=== PATIENT | male | born 1955 | race Caucasian/White ===

== ENCOUNTER 2018-01-04 21:20 | Emergency (ER) | END 2018-01-05 04:38 | disposition home or self-care (01) ==

== ENCOUNTER 2018-01-19 16:45 | Emergency (ER) | END 2018-01-19 17:34 | disposition home or self-care (01) ==

== ENCOUNTER 2018-02-03 19:02 | Emergency (ER) | END 2018-02-03 19:59 | disposition home or self-care (01) ==

== ENCOUNTER 2018-02-18 20:47 | Emergency (ER) | END 2018-02-19 07:09 | disposition home or self-care (01) ==

== ENCOUNTER 2018-02-26 17:32 | Emergency (ER) | END 2018-02-26 23:28 | disposition home or self-care (01) ==

== ENCOUNTER 2019-02-24 06:16 | Day surgery (SDC) | payer BC ==
[~2019-02-24] VITALS: Ht 165.1 cm; Wt 57.2 kg
[~2019-02-24 06:16] MED LIST: ALBU18HF INHALATION; GUAI400T68 PO; PRED20TA PO
[2019-02-24 07:04] VITALS: Ht 165.1 cm; Wt 57.2 kg
[2019-02-24 07:32] VITALS: BP 161/83; PULSE 72; RESP 16
[2019-02-24] MEDS ORDERED: LIDOCAINE 100 MG SYRINGE ONE (07:55)
[2019-02-24] MEDS ORDERED: PROPOFOL 40 ML ONE (07:55)
--- NOTE | 2019-02-24 08:05 | PREAC ---
Date/Time of Note Date/Time of Note DATE: 02/24/19 TIME: 08:03 Anesthesia Eval and Record Evaluation Time Pre-Procedure Interview DATE: 02/24/19 TIME: 08:03 Age 63 Sex male NPO: 8 hrs Preoperative diagnosis other fecal abnormalities Planned procedure EGD / colonoscopy Past Medical History Past Medical History: Includes Pulm: Asthma Surgery & Anesthesia Issues No known issue Meds Anticoagulation: No Beta Yeison within 24 hr: No Reason Beta Yeison not given: Pt. not on B-Yeison Active Scripts Prednisone* (Prednisone*) 20 Mg Tab, 40 MG PO DAILY for 3 Days, TAB Prov:YAEL CHRISTIANSON DO 02/26/18 Albuterol Sulfate* (Ventolin HFA*) 18 Gm Hfa.aer.ad, 2 PUFF INHALATION Q4H, #1 INHALER Prov:YAEL CHRISTIANSON DO 02/26/18 Discontinued Scripts Guaifenesin (Guaifenesin) 400 Mg Tablet, 400 MG PO BID for 7 Days, TAB Prov:YAEL CHRISTIANSON DO 02/26/18 Meds reviewed: Yes Allergies Coded Allergies: aspirin (Unverified Adverse Reaction, Unknown, WEAKNESS, 02/24/19) Allergies Reviewed: Yes Labs/Studies Labs Reviewed: Other (NA) test: N/A Pre-procedure Exam Last vitals Vital Signs Date Temp Pulse Resp B/P (MAP) Pulse Ox O2 O2 Flow FiO2 Time Delivery Rate 02/24/19 97.9 72 16 161/83 99 Room Air 07:32 (109) Airway: Adequate mouth opening Mallampati: Mallampati II Teeth: Normal Lung: Normal Heart: Normal ASA Physical Status ASA physical status: 2 Emergency: None Planned Anesthetic General/MAC: MAC Pre-operative Attestations Prior to commencing anesthesia and surgery, the patient was re-evaluated, there was verification of: *The patient's identity *The results of appropriate recent lab work and preoperative vital signs *The above evaluation not changing prior to induction *Anesthetic plan, risk benefits, alternative and complications discussed with patient/family; questions answered; patient/family understands, accepts and wishes to proceed. KIM KING February 24, 2019 08:05
--- NOTE | 2019-02-24 08:35 | PAC ---
Date/Time of Note Date/Time of Note DATE: 02/24/19 TIME: 08:35 Post-Anesthesia Notes Post-Anesthesia Note Last documented vital signs Vital Signs Date Temp Pulse Resp B/P (MAP) Pulse Ox O2 O2 Flow FiO2 Time Delivery Rate 02/24/19 97.9 72 16 161/83 99 Room Air 07:32 (109) Activity: WNL Respiratory function: WNL Cardiovascular function: WNL Mental status: Baseline Pain reasonably controlled: Yes Hydration appropriate: Yes Nausea/Vomiting absent: Yes KIM KING February 24, 2019 08:35
[2019-02-24] MEDS ORDERED: FENTAnyl 50 MCG/ML VIAL IV PRN ×4 (09:00→09:30)
[2019-02-24] MEDS ORDERED: ALBUTEROL 0.083% (NEB) 2.5 MG/3 ML AMP HHN PRN (09:00)
[2019-02-24] MEDS ORDERED: HYDROmorphONE 1 MG/5 ML IV SYRINGE IV PRN ×4 (09:00→09:30)
[2019-02-24] MEDS ORDERED: HYDROmorphONE 1 MG/ML SYG ONE (09:22)
[2019-02-24] MEDS ORDERED: FENTAnyl 50 MCG/ML VIAL ONE (09:22)
[2019-02-24] MEDS ORDERED: METOCLOPRAMIDE 10 MG INJ IV PRN (09:30)
[2019-02-24] MEDS ORDERED: ONDANSETRON 4 MG INJ IV PRN (09:30)
[2019-02-24] MEDS ORDERED: ONDANSETRON 4 MG INJ ONE (09:37)
== END 2019-02-24 15:22 | disposition home or self-care (01) ==
LOC: GIL 06:16
PROVIDERS: ATTEND Internal Medicine Gastroenterology
DX: K57.30 Diverticulosis of large intestine without perforation or abscess without bleeding (principal); K44.9 Diaphragmatic hernia without obstruction or gangrene
CPT/HCPCS: 43239; 45378; 88305; J1170; J2001; J2405; J3010; Z7610; 88312

== ENCOUNTER 2019-02-25 19:14 | Emergency (ER) | payer BC ==
[~2019-02-25] VITALS: Ht 165.1 cm; Wt 55.8 kg
[~2019-02-25 19:14] MED LIST changes: -GUAI400T68 PO
[2019-02-25 19:33] VITALS: Ht 165.1 cm; Wt 55.8 kg
--- NOTE | 2019-02-26 04:22 | ERD ---
ER Documentation Chief Complaint Chief Complaint C/O BLOATING X5 MONTHS, STATES PARASITES, STATES "I AM DYING" HPI Is a 62-year-old male brought in by himself with complaints of bloating and parasites all over his body. Patient had a recent colonoscopy. Upon arriving patient becomes very belligerent saying that no one believes him that his parasites. I was able to calm patient down. Telemetry psychiatry notified ROS All systems reviewed and are negative except as per history of present illness. Medications Home Meds Active Scripts Prednisone* (Prednisone*) 20 Mg Tab, 40 MG PO DAILY for 3 Days, TAB Prov:YAEL CHRISTIANSON DO 02/26/18 Albuterol Sulfate* (Ventolin HFA*) 18 Gm Hfa.aer.ad, 2 PUFF INHALATION Q4H, #1 INHALER Prov:YAEL CHRISTIANSON DO 02/26/18 Discontinued Scripts Guaifenesin (Guaifenesin) 400 Mg Tablet, 400 MG PO BID for 7 Days, TAB Prov:YAEL CHRISTIANSON DO 02/26/18 Allergies Allergies: Coded Allergies: aspirin (Unverified Adverse Reaction, Unknown, WEAKNESS, 02/24/19) PMhx/Soc History of Surgery: Yes (LT. INGUINAL HERNIA REPAIR) Anesthesia Reaction: No Hx Neurological Disorder: No Hx Respiratory Disorders: Yes (ASTHMA) Hx Cardiac Disorders: No Hx Psychiatric Problems: No Hx Miscellaneous Medical Probl: No Hx Alcohol Use: Yes Hx Substance Use: No Hx Tobacco Use: No Smoking Status: Never smoker Physical Exam Vitals Vital Signs Date Temp Pulse Resp B/P (MAP) Pulse Ox O2 O2 Flow FiO2 Time Delivery Rate 02/26/19 81 20 157/91 98 Room Air 04:00 (113) 02/26/19 86 18 171/101 97 Room Air 02:00 (124) 02/25/19 99.4 90 19 181/101 99 19:33 (127) Physical Exam Const: No acute distress Head: Atraumatic Eyes: Normal Conjunctiva ENT: Normal External Ears, Nose and Mouth. Neck: Full range of motion. No meningismus. Resp: Clear to auscultation bilaterally Cardio: Regular rate and rhythm, no murmurs Abd: Soft, non tender, non distended. Normal bowel sounds Skin: No petechiae or rashes Back: No midline or flank tenderness Ext: No cyanosis, or edema Neur: Awake and alert Psych: Normal Mood and Affect Result Diagram: 02/26/19 0208 02/26/19 0208 Results 24 hrs Laboratory Tests Test 02/26/19 02:08 02/26/19 02:30 White Blood Count 11.4 10^3/ul Red Blood Count 4.18 10^6/ul Hemoglobin 12.1 g/dl Hematocrit 37.4 % Mean Corpuscular Volume 89.5 fl Mean Corpuscular Hemoglobin 28.9 pg Mean Corpuscular Hemoglobin Concent 32.4 g/dl Red Cell Distribution Width 12.9 % Platelet Count 355 10^3/UL Mean Platelet Volume 9.4 fl Immature Granulocytes % 0.400 % Neutrophils % 84.4 % Lymphocytes % 8.1 % Monocytes % 6.9 % Eosinophils % 0.1 % Basophils % 0.1 % Nucleated Red Blood Cells % 0.0 /100WBC Immature Granulocytes # 0.040 10^3/ul Neutrophils # 9.6 10^3/ul Lymphocytes # 0.9 10^3/ul Monocytes # 0.8 10^3/ul Eosinophils # 0.0 10^3/ul Basophils # 0.0 10^3/ul Nucleated Red Blood Cells # 0.0 10^3/ul Sodium Level 138 mmol/L Potassium Level 3.6 mmol/L Chloride Level 100 mmol/L Carbon Dioxide Level 28 mmol/L Anion Gap 10 Blood Urea Nitrogen 21 mg/dl Creatinine 0.69 mg/dl Est Glomerular Filtrat Rate mL/min > 60 mL/min Glucose Level 98 mg/dl Calcium Level 9.2 mg/dl Total Bilirubin 0.7 mg/dl Direct Bilirubin 0.00 mg/dl Indirect Bilirubin 0.7 mg/dl Aspartate Amino Transf (AST/SGOT) 24 IU/L Alanine Aminotransferase (ALT/SGPT) 9 IU/L Alkaline Phosphatase 102 IU/L Total Protein 8.2 g/dl Albumin 4.0 g/dl Globulin 4.20 g/dl Albumin/Globulin Ratio 0.95 Salicylates Level < 1.0 mg/dl Acetaminophen Level < 10.0 ug/ml Ethyl Alcohol Level < 10.0 mg/dl Urine Color YELLOW Urine Clarity CLEAR Urine pH 6.0 Urine Specific [place] 1.021 Urine Ketones 2+ mg/dL Urine Nitrite NEGATIVE mg/dL Urine Bilirubin NEGATIVE mg/dL Urine Urobilinogen 1+ mg/dL Urine Leukocyte Esterase NEGATIVE La/ul Urine Microscopic RBC 70 /HPF Urine Microscopic WBC 1 /HPF Urine Mucus FEW /HPF Urine Hemoglobin 2+ mg/dL Urine Glucose NEGATIVE mg/dL Urine Total Protein NEGATIVE mg/dl Urine Opiates Screen Negative Urine Barbiturates Negative Urine Amphetamines Screen Negative Urine Benzodiazepines Screen Negative Urine Cocaine Screen Negative Urine Cannabinoids Positive Procedures/MDM Patient's behavioral symptoms have stabilized while in the department. Patient is medically cleared and appropriate for psychiatric evaluation and work up. No e/o neurologic, toxic, infectious, or metabolic cause. Found to be stable f or trial of outpatient management. Telemetry psych recommend risperidone 1 mg bedtime which I will j prescribe to the patient Departure Diagnosis: Primary Impression: Multiple complaints Condition: Stable JOEL ROD February 26, 2019 04:22
[2019-02-26] MEDS ORDERED: RISP1TAB3 PO (04:23)
[2019-02-26 04:31] VITALS: BP 133/75; PULSE 73; RESP 16
--- NOTE | 2019-02-26 05:48 | PSY ---
Date/Time of Note Date/Time of Note DATE: 02/26/19 TIME: 05:47 Psychiatric Subjective Eval Consent Pt consented to telemedicine: Yes Subjective Evaluation Patient location: emergency Chief Complaint: C/O BLOATING X5 MONTHS, STATES PARASITES, STATES "I AM DYING" Medical history Problems Medical Problems: (1) Asthma Status: Acute (2) Asthma Status: Acute (3) Asthma exacerbation Status: Acute (4) Asthma exacerbation Status: Acute (5) Asthma exacerbation Status: Acute (6) Factitial dermatitis Status: Acute (7) Fear of parasites Status: Acute (8) Multiple complaints Status: Acute (9) Peripheral edema Status: Acute (10) Rash and other nonspecific skin eruption Status: Acute (11) Skin lesions, generalized Status: Acute (12) Skin lesions, generalized Status: Acute Allergies: Coded Allergies: aspirin (Unverified Adverse Reaction, Unknown, WEAKNESS, 02/24/19) Psychiatric Objective Eval Mental Status Examination: Laboratory Results Laboratory Tests Test 02/26/19 02:08 02/26/19 02:30 White Blood Count 11.4 10^3/ul Red Blood Count 4.18 10^6/ul Hemoglobin 12.1 g/dl Hematocrit 37.4 % Mean Corpuscular Volume 89.5 fl Mean Corpuscular Hemoglobin 28.9 pg Mean Corpuscular Hemoglobin Concent 32.4 g/dl Red Cell Distribution Width 12.9 % Platelet Count 355 10^3/UL Mean Platelet Volume 9.4 fl Immature Granulocytes % 0.400 % Neutrophils % 84.4 % Lymphocytes % 8.1 % Monocytes % 6.9 % Eosinophils % 0.1 % Basophils % 0.1 % Nucleated Red Blood Cells % 0.0 /100WBC Immature Granulocytes # 0.040 10^3/ul Neutrophils # 9.6 10^3/ul Lymphocytes # 0.9 10^3/ul Monocytes # 0.8 10^3/ul Eosinophils # 0.0 10^3/ul Basophils # 0.0 10^3/ul Nucleated Red Blood Cells # 0.0 10^3/ul Sodium Level 138 mmol/L Potassium Level 3.6 mmol/L Chloride Level 100 mmol/L Carbon Dioxide Level 28 mmol/L Anion Gap 10 Blood Urea Nitrogen 21 mg/dl Creatinine 0.69 mg/dl Est Glomerular Filtrat Rate mL/min > 60 mL/min Glucose Level 98 mg/dl Calcium Level 9.2 mg/dl Total Bilirubin 0.7 mg/dl Direct Bilirubin 0.00 mg/dl Indirect Bilirubin 0.7 mg/dl Aspartate Amino Transf (AST/SGOT) 24 IU/L Alanine Aminotransferase (ALT/SGPT) 9 IU/L Alkaline Phosphatase 102 IU/L Total Protein 8.2 g/dl Albumin 4.0 g/dl Globulin 4.20 g/dl Albumin/Globulin Ratio 0.95 Salicylates Level < 1.0 mg/dl Acetaminophen Level < 10.0 ug/ml Ethyl Alcohol Level < 10.0 mg/dl Urine Color YELLOW Urine Clarity CLEAR Urine pH 6.0 Urine Specific [place] 1.021 Urine Ketones 2+ mg/dL Urine Nitrite NEGATIVE mg/dL Urine Bilirubin NEGATIVE mg/dL Urine Urobilinogen 1+ mg/dL Urine Leukocyte Esterase NEGATIVE La/ul Urine Microscopic RBC 70 /HPF Urine Microscopic WBC 1 /HPF Urine Mucus FEW /HPF Urine Hemoglobin 2+ mg/dL Urine Glucose NEGATIVE mg/dL Urine Total Protein NEGATIVE mg/dl Urine Opiates Screen Negative Urine Barbiturates Negative Urine Amphetamines Screen Negative Urine Benzodiazepines Screen Negative Urine Cocaine Screen Negative Urine Cannabinoids Positive Assessment and Plan Recommendation/Plan Discharge Disposition: Community (home) Legal Status: Voluntary Assessment Additional comments: IDENTIFYING INFORMATION: 63 year old Male patient who is currently located at the hospital and for whom psychiatric consultation was requested. SOURCES OF INFORMATION: The patient who appears to be somewhat reliable and the medical records; the nursing staff. Junior Aleman, friend, was called at [phone] at 2:18 am. He appears to be reliable. CHIEF COMPLAINT: "I have a severe case of parasites". HISTORY OF PRESENT ILLNESS: The patient was interviewed via telemedicine in the presence of and under the supervision of nursing staff of the hospital. The consent to conducting this interview via telemedicine was obtained by the nursing staff at the hospital. GERSON Elizabeth reports that the patient presented with delusions of parasitosis. Denies having SI, HI. The patient reports having been bit by a fly at the back of his head, but the larvae were never removed. He reports that the parasites have paralyzed his body almost. Reports that he is very bloated. Admits to insomnia. Reports that he has a colonoscopy scheduled in a few days to get checked for parasites. The patient denies having AH, SI, HI, depressed mood, anhedonia. The patient denies using alcohol heavily or regularly. The patient denies using any other substances. In terms of past psychiatric history, the patient reports having a history of no past psychiatric hospitalizations. The patient reports having a history of no past suicide attempts. Past medication trials: unknown. The patient denies ever having a history of AH, persistent or serious depression or anhedonia, manic or hypomanic episodes. Mr. Aleman denies the pt having SI, HI, imminent safety concerns. The pt reports that he suffers from parasites. PAST MEDICAL HISTORY: asthma, h/o arthritis. CURRENT MEDICATIONS: ventalin. ALLERGIES TO MEDICATIONS: aspirin. LABORATORY TESTS: CBC with white blood cells of 11.4, hemoglobin of 12.1, hematocrit 37.4, CMP with blood urea nitrogen of 21, UDS positive for cannabinoids, no alcohol detected SOCIAL HISTORY: lives at a motel, single, has grown kids, not in close contact, retired, awaiting for his green card, not on disability, on welfare, food stamps, no access to firearms. REVIEW OF SYSTEMS: Constitutional (e.g., fever, weight loss): negative; Eyes, Ears, Nose, Mouth, Throat: negative; Cardiovascular: negative; Respiratory: negative; Gastrointestinal: negative; Genitourinary: negative; Musculoskeletal: negative; Integumentary (skin and/or breast): + pruritus; Neurological: negative; Psychiatric: as per HPI; Endocrine: negative; Hematologic/Lymphatic: negative; Allergic/Immunologic: negative. MENTAL STATUS EXAMINATION: General Appearance and Behavior: Calm, cooperative with the interview, pleasant with the current interviewer, makes fair eye contact, fairly groomed, no abnormal movements noted, Speech: Regular rate, regular rhythm, normal latency, normal volume, somewhat increased amount, Flow of thought: sequential, logical, goal-directed at times, illogical at times, Content of thought: no auditory hallucinations, no visual hallucinations, + delusions of parasitosis, negative for suicidal ideation; no homicidal ideation, Mood: "not good", Affect: anxious, reactive, Attention: normal based on the interview, Insight: poor, Judgment: poor, Memory: normal based on the interview, Sensorium: alert and oriented to person, place and date. 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 PLAN: - Medication management: Would start risperidone 1 mg po qhs if parasitosis has been ruled out by the ER staff. - Labs: no need to check for other labs at this time from a psychiatric perspective. - Psychotherapy: Provided supportive psychotherapy and psychoeducation. - Disposition: If the patient's alcohol level is above the legal limit, then please reconsult psychiatry to determine disposition once the patient's alcohol level is below the legal limit. If the patient's alcohol level comes back below the legal limit, then the patient is appropriate for the outpatient level of care at this time from a psychiatric perspective. The patient is not an imminent danger to self or others. The patient is motivated for outpatient treatment. The patient agrees to be compliant with outpatient follow-up appointments and pharmacotherapy as indicated. Would recommend that the patient follows up with a psychiatrist. Resources for outpatient follow-up will be provided by the hospital staff. The patient's risk for completed suicide is moderate to high in comparison to the general population. Risk factors include marital status, age, gender, psychotic disorder, poor social support. Protective factors include race, absence of substance use disorder, BPAD, MDD, anxiety disorder, personality disorder, no access to firearms, no access to firearms, no h/o past SA, no major chronic medical problems. The patient's risk for completed suicide cannot be modified more effectively with inpatient admission at this time. The patient is not an imminent danger to self or others at this time and does not meet the legal criteria for involuntary admission. Risks, benefits, alternatives were discussed and the patient provided informed consent to proceed with the above plan. Discussed about the above plan with Dr. Gibson. JOSH VÁSQUEZ MD February 26, 2019 05:48
== END 2019-02-26 07:46 | disposition home or self-care (01) ==
LOC: E/R 19:14
DX: R14.0 Abdominal distension (gaseous) (principal); J45.909 Unspecified asthma, uncomplicated
CPT/HCPCS: 36415; 80053; 80307; 81001; 85025; 99283